=== PATIENT | female | born 1985 | race Caucasian/White ===

== ENCOUNTER 2022-04-04 15:40 | Inpatient (IN) | payer OTHER ==
[~2022-04-04] VITALS: Ht 162.6 cm; Wt 69.4 kg
[2022-04-04] MEDS ORDERED: PRENATAL TABLE1 EAC1 PO (19:02)
[2022-04-04] MEDS ORDERED: IRON325 MG PO (19:03)
== END 2022-04-06 10:34 | disposition home or self-care (01) | DRG 833 ==
LOC: NST 15:40 → LDR 17:20 → OB/GYN 04-05 10:07
PROVIDERS: ADMIT Obstetrics & Gynecology Gynecology; ATTEND Obstetrics & Gynecology Gynecology
PROC: 4A1HXCZ Monitoring of Products of Conception, Cardiac Rate, External Approach (ICD-10-PCS; principal; 2022-04-04)
PROC: BY4FZZZ Ultrasonography of Third Trimester, Single Fetus (ICD-10-PCS; 2022-04-04)
DX: O47.03 False labor before 37 completed weeks of gestation, third trimester (principal); Z3A.33 33 weeks gestation of pregnancy; Z20.822 Contact with and (suspected) exposure to COVID-19

== ENCOUNTER 2022-04-13 13:53 | Outpatient (CLI) | payer OTHER ==
[~2022-04-13 13:53] MED LIST: IRON325 MG PO; PRENATAL TABLE1 EAC1 PO
== END 2022-04-13 17:27 | disposition home or self-care (01) ==
LOC: NST 13:53
PROVIDERS: ATTEND Obstetrics & Gynecology Gynecology
DX: Z34.83 Encounter for supervision of other normal pregnancy, third trimester (principal)

== ENCOUNTER 2022-05-15 12:00 | Inpatient (IN) | payer OTHER ==
[~2022-05-15] VITALS: Ht 162.6 cm; Wt 2.7 kg
== END 2022-05-20 18:08 | disposition home or self-care (01) | DRG 788 ==
LOC: O/R 05-17 06:17 → LDR 05-17 09:15 → OB/GYN 05-17 10:16 → LDR 05-17 12:45 → OB/GYN 05-19 11:31
PROVIDERS: ADMIT Obstetrics & Gynecology Maternal & Fetal Medicine; ATTEND Obstetrics & Gynecology Maternal & Fetal Medicine
PROC: 4A1HXCZ Monitoring of Products of Conception, Cardiac Rate, External Approach (ICD-10-PCS; 2022-05-17)
PROC: 10D00Z1 Extraction of Products of Conception, Low, Open Approach (ICD-10-PCS; principal; 2022-05-17 09:15)
DX: O32.1XX0 Maternal care for breech presentation, not applicable or unspecified (principal); Z3A.39 39 weeks gestation of pregnancy; Z37.0 Single live birth; Z20.822 Contact with and (suspected) exposure to COVID-19

== ENCOUNTER 2023-05-07 14:45 | Outpatient (CLI) | payer OTHER | END 2023-05-07 14:52 | disposition home or self-care (01) | LOC: MAMO-SONO 14:45 | PROVIDERS: ATTEND Obstetrics & Gynecology Gynecology | DX: N63 Unspecified lump in breast (principal); N64.4 Mastodynia; N60.11 Diffuse cystic mastopathy of right breast; Z12.31 Encounter for screening mammogram for malignant neoplasm of breast ==